=== PATIENT | male | born 1970 | race Caucasian/White ===

== ENCOUNTER 2023-10-08 07:57 | Emergency (ER) | payer OTHER ==
[~2023-10-08] VITALS: Ht 182.8 cm; Wt 140.6 kg
[2023-10-08] MEDS ORDERED: CEPHALEXIN500 M1 PO (08:46)
== END 2023-10-08 10:38 | disposition home or self-care (01) ==
LOC: ED 07:57
DX: S61.211A Laceration without foreign body of left index finger without damage to nail, initial encounter (principal); Z79.899 Other long term (current) drug therapy; W26.8XXA Contact with other sharp object(s), not elsewhere classified, initial encounter; Y93.89 Activity, other specified; Y92.89 Other specified places as the place of occurrence of the external cause; Y99.0 Civilian activity done for income or pay